=== PATIENT | male | born 2000 | race Caucasian/White ===

== ENCOUNTER → 2023-04-04 09:50 | Outpatient (CLI) | payer OTHER, SELFPAY ==
--- NOTE | 2023-04-04 | DI.US.S_ITS ---
PROCEDURE: US THYROID INDICATIONS: RIGHT NECK SWELLING TECHNIQUE: Real-time scanning was performed of the thyroid gland, with image documentation. COMPARISON: None. FINDINGS: Right: 7.2 x 2.1 x 2 cm Left: 7 x 2 x 1.6 cm Isthmus: 2.5 mm. No lymphadenopathy or soft tissue abnormality identified in the neck. The thyroid lobes appear elongated, but with overall normal echotexture, vascularity, without discrete nodule. IMPRESSION: No acute sonographic abnormality in the neck or thyroid gland. No nodules requiring dedicated follow-up within the thyroid. The bilateral thyroid lobes appear somewhat elongated measuring 7-7.2 cm. Clinical followup is recommended. If there is new or worsening clinical concern, reimaging could be obtained. Dictated by: Jose Miguel Price M.D. on 04/04/2023 at 14:13 Approved by: Jose Miguel Price M.D. on 04/04/2023 at 14:15
== END ==
PROVIDERS: PCP Registered Nurse; Referring Provider Nurse Practitioner Family; Visit Provider Nurse Practitioner Family
DX: R22.1 Localized swelling, mass and lump, neck (principal)
CPT/HCPCS: 76536